=== PATIENT | female | born 2000 | race Caucasian/White ===

== ENCOUNTER 2023-06-03 10:27 | Day surgery (SDC) | payer BC ==
[2023-05-27 12:17] VITALS: BMI 20.8
[2023-06-03] MEDS ORDERED: PROPOFOL 20 ML ONE (11:52)
[2023-06-03 12:26] VITALS: PULSE 61; TEMP 98.6
[2023-06-03 12:33] VITALS: BP 96/50; RESP 18
== END 2023-06-03 12:45 | disposition home or self-care (01) ==
LOC: FASU-ENDO 10:27
PROVIDERS: ATTEND Internal Medicine Gastroenterology
PROC: 0DBL8ZX Excision of Transverse Colon, Via Natural or Artificial Opening Endoscopic, Diagnostic (ICD-10-PCS; 2023-06-03)
PROC: 0DBP8ZX Excision of Rectum, Via Natural or Artificial Opening Endoscopic, Diagnostic (ICD-10-PCS; 2023-06-03)
PROC: 0DBM8ZX Excision of Descending Colon, Via Natural or Artificial Opening Endoscopic, Diagnostic (ICD-10-PCS; 2023-06-03)
PROC: 0DBK8ZX Excision of Ascending Colon, Via Natural or Artificial Opening Endoscopic, Diagnostic (ICD-10-PCS; principal; 2023-06-03 11:42)
DX: R19.7 Diarrhea, unspecified (principal); K64.1 Second degree hemorrhoids; K63.89 Other specified diseases of intestine
CPT/HCPCS: 81025; 88305-TC